=== PATIENT | male | born 1975 | race Caucasian/White ===

== ENCOUNTER → 2017-01-06 | Outpatient (CLI) | payer OTHER ==
[~2017-01-06] MED LIST: ALBU90OI INH; AZIT250 PO; Augmentin 500-1 EACH PO; BENZ100A PO; CIPR750 PO; DIAZ5 PO; DOCU100 PO; HYDACE5 PO; HYDR1TAB94 PO; Hydrocodone-Ap1 EA23 PO; IBUP400 PO; IBUP800 PO; META800 PO; METR500 PO; NEOM500 PO; Norco 5-325 Ta1 EACH PO; OMEP20ER PO; PROC5 PO; Percocet 5-3251 EACH PO; TRAM50 PO; TYLENOL325 MG PO; Zithromax250 MG PO; Zofran Odt4 MG SL
[2017-01-06 15:42] LABS: BASOPHILS ABSOLUTE AUTO 0.01 K/mm3 (0.00-0.23); BASOPHILS PERCENT AUTO 0 % (0-2); EOSINOPHILS ABSOLUTE AUTO 0.05 K/mm3 (0.00-0.68); EOSINOPHILS PERCENT AUTO 1 % (0-6); Hematocrit 42.7 % (37.0-53.0); Hemoglobin 15.2 g/dL (13.5-17.5); IMMATURE GRAN ABSOLUTE AUTO 0.02 K/mm3 (0.00-0.10); IMMATURE GRAN PERCENT AUTO 0 % (0-1); LYMPHOCYTES ABSOLUTE AUTO 1.55 K/mm3 (0.84-5.20); LYMPHOCYTES PERCENT AUTO 21 % (21-46); MONOCYTES ABSOLUTE AUTO 0.66 K/mm3 (0.16-1.47); MONOCYTES PERCENT AUTO 9 % (4-13); Mean Corpuscular HGB 28.4 pg (26.0-34.0); Mean Corpuscular HGB Conc 35.6 g/dL (31.5-36.5); Mean Corpuscular Volume 80 fL (80-100); Mean Platelet Volume 9.9 fL (9.1-12.4); NEUTROPHILS ABSOLUTE AUTO 4.98 K/mm3 (1.96-9.15); NEUTROPHILS PERCENT AUTO 69 % (41-73); Platelet Count 153 K/mm3 (150-400); RDW Coefficient Variation 11.8 % (11.7-14.2); RDW Standard Deviation 33.7 fL (35.1-46.3); Red Blood Cell Count 5.36 M/mm3 (4.30-5.90); White Blood Cell Count 7.27 K/mm3 (4.00-11.30)
[2017-01-06 15:50] LABS: Alanine Aminotransfer (ALT/SGP 45 U/L (12-78); Alk Phos 94 U/L (40-126); Anion Gap 10 mmol/L (6-16); Aspartate Aminotrans (AST/SGOT 20 U/L (12-37); Bilirubin, Total 0.8 mg/dL (0.1-1.0); Blood Urea Nitrogen 11 mg/dL (8-24); Bun/Creatinine Ratio 12.4 (12.0-20.0); CO2, Blood 26 mmol/L (21-32); Chloride, Blood 101 mmol/L (98-108); Creatinine, Blood 0.89 mg/dL (0.60-1.20); Globulin, Blood 4.1 g/dL (2.2-4.0); Glomerular Filtration Rate >60 (60-); Glucose, Blood 103 mg/dL (70-99); Sodium, Blood 137 mmol/L (136-145); Total Protein, Blood 8.1 g/dL (6.4-8.2)
== END | disposition home or self-care (01) ==
LOC: LAB EV 15:35
PROVIDERS: Physician Assistant Surgical
DX: K29.70 Gastritis, unspecified, without bleeding (principal)
CPT/HCPCS: 80053; 83690; 85025

== ENCOUNTER 2017-06-29 21:07 | Inpatient (IN) | payer OTHER ==
[~2017-06-29] VITALS: Ht 177.8 cm; Wt 104.7 kg
[~2017-06-29 21:07] MED LIST changes: -Augmentin 500-1 EACH PO; -CIPR750 PO; -DOCU100 PO; -HYDR1TAB94 PO; -Hydrocodone-Ap1 EA23 PO; -IBUP400 PO; -METR500 PO; -NEOM500 PO; -Norco 5-325 Ta1 EACH PO; -PROC5 PO; -Percocet 5-3251 EACH PO; -TRAM50 PO; -TYLENOL325 MG PO; -Zofran Odt4 MG SL
[2017-06-29 21:35] LABS: BASOPHILS ABSOLUTE AUTO 0.01 K/mm3 (0.00-0.23); BASOPHILS PERCENT AUTO 0 % (0-2); EOSINOPHILS ABSOLUTE AUTO 0.07 K/mm3 (0.00-0.68); EOSINOPHILS PERCENT AUTO 1 % (0-6); Hematocrit 39.5 % (37.0-53.0); Hemoglobin 13.4 g/dL (13.5-17.5); IMMATURE GRAN ABSOLUTE AUTO 0.03 K/mm3 (0.00-0.10); IMMATURE GRAN PERCENT AUTO 0 % (0-1); LYMPHOCYTES ABSOLUTE AUTO 1.11 K/mm3 (0.84-5.20); LYMPHOCYTES PERCENT AUTO 15 % (21-46); MONOCYTES PERCENT AUTO 9 % (4-13); Mean Corpuscular HGB 27.4 pg (26.0-34.0); Mean Corpuscular HGB Conc 33.9 g/dL (31.5-36.5); Mean Corpuscular Volume 81 fL (80-100); Mean Platelet Volume 9.6 fL (9.1-12.4); NEUTROPHILS ABSOLUTE AUTO 5.66 K/mm3 (1.96-9.15); NEUTROPHILS PERCENT AUTO 75 % (41-73); Platelet Count 151 K/mm3 (150-400); RDW Coefficient Variation 11.7 % (11.7-14.2); RDW Standard Deviation 34.2 fL (35.1-46.3); Red Blood Cell Count 4.89 M/mm3 (4.30-5.90); White Blood Cell Count 7.58 K/mm3 (4.00-11.30)
[2017-06-29 21:53] LABS: Source, Urine Clean Catch
[2017-06-29 21:54] LABS: Alanine Aminotransfer (ALT/SGP 36 U/L (12-78); Albumin, Blood 3.5 g/dL (3.4-5.0); Albumin/Globulin Ratio 0.8 (0.8-1.8); Alk Phos 84 U/L (50-136); Anion Gap 7 mmol/L (6-16); Aspartate Aminotrans (AST/SGOT 21 U/L (12-37); Bilirubin, Total 0.6 mg/dL (0.1-1.0); Blood Urea Nitrogen 9 mg/dL (8-24); CO2, Blood 26 mmol/L (21-32); Calcium, Blood 8.4 mg/dL (8.5-10.1); Chloride, Blood 107 mmol/L (98-108); Globulin, Blood 4.2 g/dL (2.2-4.0); Glomerular Filtration Rate >60 (60-); Glucose, Blood 95 mg/dL (70-99); Potassium, Blood 3.9 mmol/L (3.5-5.5); Sodium, Blood 140 mmol/L (136-145); Total Protein, Blood 7.7 g/dL (6.4-8.2)
[2017-06-29 21:55] LABS: Appearance, Urine Clear (Clear); Bilirubin, Urine Neg (Neg); Blood, Urine 2+ (Neg); Color, Urine Yellow (P-Yellow); Glucose Qualitative, Urine Neg (Neg); Ketones, Urine Neg (Neg); Leukocyte Esterase, Urine Neg (Neg); Nitrite, Urine Neg (Neg); Protein, Urine Neg (Neg); Specific Gravity, Urine 1.015 (1.003-1.022); Urobilinogen, Urine 2+ (Normal); pH, Urine 6.5 (5.0-8.0)
[2017-06-29 22:07] LABS: Bacteria Not Seen /hpf; Red Blood Cells, Urine 0-2 /hpf (0-2); Squamous Epithelial Cells Not Seen /hpf (Few); White Blood Cells, Urine Rare /hpf (0-5)
[2017-07-01 08:38] LABS: BASOPHILS ABSOLUTE AUTO 0.01 K/mm3 (0.00-0.23); BASOPHILS PERCENT AUTO 0 % (0-2); EOSINOPHILS ABSOLUTE AUTO 0.09 K/mm3 (0.00-0.68); EOSINOPHILS PERCENT AUTO 2 % (0-6); Hematocrit 38.1 % (37.0-53.0); Hemoglobin 12.7 g/dL (13.5-17.5); IMMATURE GRAN ABSOLUTE AUTO 0.03 K/mm3 (0.00-0.10); IMMATURE GRAN PERCENT AUTO 1 % (0-1); LYMPHOCYTES PERCENT AUTO 19 % (21-46); MONOCYTES ABSOLUTE AUTO 0.64 K/mm3 (0.16-1.47); MONOCYTES PERCENT AUTO 14 % (4-13); Mean Corpuscular HGB 27.3 pg (26.0-34.0); Mean Corpuscular HGB Conc 33.3 g/dL (31.5-36.5); Mean Corpuscular Volume 82 fL (80-100); Mean Platelet Volume 9.6 fL (9.1-12.4); NEUTROPHILS ABSOLUTE AUTO 3.07 K/mm3 (1.96-9.15); NEUTROPHILS PERCENT AUTO 65 % (41-73); Platelet Count 123 K/mm3 (150-400); RDW Coefficient Variation 11.7 % (11.7-14.2); RDW Standard Deviation 34.7 fL (35.1-46.3); Red Blood Cell Count 4.65 M/mm3 (4.30-5.90); White Blood Cell Count 4.74 K/mm3 (4.00-11.30)
[2017-07-01 08:59] LABS: Anion Gap 5 mmol/L (6-16); Blood Urea Nitrogen 7 mg/dL (8-24); Bun/Creatinine Ratio 9.4 (12.0-20.0); CO2, Blood 26 mmol/L (21-32); Calcium, Blood 8.6 mg/dL (8.5-10.1); Chloride, Blood 108 mmol/L (98-108); Creatinine, Blood 0.74 mg/dL (0.60-1.20); Glomerular Filtration Rate >60 (60-); Glucose, Blood 119 mg/dL (70-99); Potassium, Blood 4.1 mmol/L (3.5-5.5); Sodium, Blood 139 mmol/L (136-145)
[2017-07-01] MEDS ORDERED: TYLENOL325 MG PO (15:59)
[2017-07-01] MEDS ORDERED: CIPR750 PO (16:00)
[2017-07-01] MEDS ORDERED: DOCU100 PO (16:00)
[2017-07-01] MEDS ORDERED: HYDR1TAB94 PO (16:01)
[2017-07-01] MEDS ORDERED: METR500 PO (16:01)
[2017-07-01] MEDS ORDERED: PROC5 PO (16:02)
== END 2017-07-01 16:51 | disposition home or self-care (01) | DRG 392 ==
LOC: ER 21:07 → MEDS 06-30 04:06 → UNDODEPER 06-30 05:29 → ENPENDDIS 07-01 16:45 → MEDS 07-01 16:51
PROVIDERS: Emergency Medicine; Internal Medicine
DX: K57.20 Diverticulitis of large intestine with perforation and abscess without bleeding (principal); Z87.891 Personal history of nicotine dependence; Z80.0 Family history of malignant neoplasm of digestive organs
CPT/HCPCS: 36415; 36416; 74018; 74177; 80048; 80053; 81001; 83605; 83690; 85025; 96365; 96367; 99285; J0744; J1650; J3010; J7030; Q9967

== ENCOUNTER 2017-11-06 20:15 | Emergency (ER) | payer OTHER ==
[~2017-11-06] VITALS: Ht 177.8 cm; Wt 98.4 kg
[~2017-11-06 20:15] MED LIST changes: +CIPR750 PO; +DOCU100 PO; +HYDR1TAB94 PO; +METR500 PO; +PROC5 PO; +TYLENOL325 MG PO
[2017-11-06 20:48] LABS: BASOPHILS ABSOLUTE AUTO 0.01 K/mm3 (0.00-0.23); BASOPHILS PERCENT AUTO 0 % (0-2); EOSINOPHILS ABSOLUTE AUTO 0.07 K/mm3 (0.00-0.68); EOSINOPHILS PERCENT AUTO 1 % (0-6); Hematocrit 41.5 % (37.0-53.0); Hemoglobin 13.9 g/dL (13.5-17.5); IMMATURE GRAN ABSOLUTE AUTO 0.03 K/mm3 (0.00-0.10); IMMATURE GRAN PERCENT AUTO 0 % (0-1); LYMPHOCYTES ABSOLUTE AUTO 1.56 K/mm3 (0.84-5.20); LYMPHOCYTES PERCENT AUTO 17 % (21-46); MONOCYTES PERCENT AUTO 8 % (4-13); Mean Corpuscular HGB 27.5 pg (26.0-34.0); Mean Corpuscular HGB Conc 33.5 g/dL (31.5-36.5); Mean Corpuscular Volume 82 fL (80-100); Mean Platelet Volume 9.9 fL (9.1-12.4); NEUTROPHILS ABSOLUTE AUTO 6.57 K/mm3 (1.96-9.15); NEUTROPHILS PERCENT AUTO 74 % (41-73); Platelet Count 129 K/mm3 (150-400); RDW Coefficient Variation 11.9 % (11.7-14.2); RDW Standard Deviation 35.3 fL (35.1-46.3); Red Blood Cell Count 5.06 M/mm3 (4.30-5.90); White Blood Cell Count 8.94 K/mm3 (4.00-11.30)
[2017-11-06 20:54] LABS: Alanine Aminotransfer (ALT/SGP 36 U/L (12-78); Albumin, Blood 3.9 g/dL (3.4-5.0); Alk Phos 81 U/L (50-136); Anion Gap 6 mmol/L (6-16); Aspartate Aminotrans (AST/SGOT 16 U/L (12-37); Bilirubin, Total 0.5 mg/dL (0.1-1.0); Blood Urea Nitrogen 8 mg/dL (8-24); Bun/Creatinine Ratio 9.9 (12.0-20.0); CO2, Blood 28 mmol/L (21-32); Calcium, Blood 8.9 mg/dL (8.5-10.1); Chloride, Blood 103 mmol/L (98-108); Creatinine, Blood 0.81 mg/dL (0.60-1.20); Glomerular Filtration Rate >60 (60-); Glucose, Blood 94 mg/dL (70-99); Potassium, Blood 3.9 mmol/L (3.5-5.5); Sodium, Blood 137 mmol/L (136-145); Total Protein, Blood 7.9 g/dL (6.4-8.2)
[2017-11-07] MEDS ORDERED: Augmentin 500-1 EACH PO (01:26)
[2017-11-07] MEDS ORDERED: Norco 5-325 Ta1 EACH PO (01:26)
[2017-11-07] MEDS ORDERED: Zofran Odt4 MG SL (01:26)
== END 2017-11-07 01:50 | disposition home or self-care (01) ==
LOC: ER 20:15
PROVIDERS: Emergency Medicine
DX: K57.32 Diverticulitis of large intestine without perforation or abscess without bleeding (principal); Z87.891 Personal history of nicotine dependence
CPT/HCPCS: 36415; 74177; 80053; 83690; 85025; 96361; 96374; 96375; 99284-25; J1170; J2405; J7030; Q9967

== ENCOUNTER 2018-02-15 07:01 | Inpatient (IN) | payer OTHER ==
[~2018-02-15] VITALS: Ht 177.8 cm; Wt 97.5 kg
[~2018-02-15 07:01] MED LIST changes: +Augmentin 500-1 EACH PO; +Hydrocodone-Ap1 EA23 PO; +IBUP400 PO; +Norco 5-325 Ta1 EACH PO; +TRAM50 PO; +Zofran Odt4 MG SL
--- NOTE | 2018-02-15 07:59 | NUR ---
History, Chart, Medications and Allergies reviewed before start of procedure. Patient confirms NPO status and agrees with scheduled surgery. Patient reports completing Chlorhexadine shower X2 prior to admission to hospital.
--- NOTE | 2018-02-15 08:05 | NUR ---
REPORTS TAKING ALL OF COLON PREP WITH CLEAR RESULTS.
[2018-02-15] MEDS ORDERED: NEOM500 PO (08:19)
[2018-02-15] MEDS ORDERED: METR500 PO (08:20)
--- NOTE | 2018-02-15 13:40 | NUR ---
PATIENT STATES CONTINUES TO BE PAINFUL AFTER I HAVE EXHAUSTED ALL OF MY ANELGESIC OPTIONS, DR JOHN NOTIFIED. PATIENT CONTINUES TO REFUSE EPIDURAL PAIN CONTROL. O2 2L NC PLACED FOR SUPPORT, PATIENT REMINDED TO DEEP BREATH WITH GOOD RESPONSE. STATES HURTS TO BREATH DEEP. WILL ANTICIPATE ORDERS FROM DR JOHN FOR PAIN CONTROL.
--- NOTE | 2018-02-15 14:01 | NUR ---
TITRATED MEDICATIONS THROUGH RECOVERY FOLLOWS: 1256-FENTANYL 50 MCG IV 1301-FENTANYL 50 MCG IV 1312-FENTANYL 50 MCG IV 1320-FENTANYL 25 MCG IV 1325-FENTANYL 25 MCG IV 1330-FENTANYL 25 MCG IV 1340-FENTANYL 25 MCG IV 1345-FENTANYL 25 MCG IV 1350-FENTANYL 25 MCG IV FOR A TOTAL OF 300 MCG IV GIVEN, WILL SET UP MORPHINE SEAFOOD PROCESSOR PER DR JOHN'S ORDER.
--- NOTE | 2018-02-15 14:18 | NUR ---
MORPHINE RIVETING MACHINE OPERATOR AUTOMATIC VERIFIED WITH LARA Sykes RN AND ADMINISTERED AT 1418.
--- NOTE | 2018-02-15 18:58 | NUR ---
SHIFT SUMMARY PT A&OX4, VSS, S/P SIGMOID LAP COLECTOMY, 3 STERIS SCANT DRAINAGE, PREVENA IN PLACE. MORPHINE ESTATE PLANNING PARALEGAL MANAGING PAIN, PT REP 06/14 TOLERABLE. GRETCHEN CLEAR LIQUIDS, NOT TAKING IN MUCH FLUIDS, IVF @75 MLS/HR. EDOUARD, 5 MLS OUT SINCE ARRIVAL TO FLOOR, BLADDER SCAN 24 MLS, ENC PT TO DRINK WATER. AT BEDSIDE. WILL CTM UNTIL REPORT GIVEN TO ONCOMING NOC RN.
[2018-02-16 05:40] LABS: BASOPHILS ABSOLUTE AUTO 0.01 K/mm3 (0.00-0.23); BASOPHILS PERCENT AUTO 0 % (0-2); EOSINOPHILS PERCENT AUTO 0 % (0-6); Hematocrit 35.6 % (37.0-53.0); IMMATURE GRAN ABSOLUTE AUTO 0.03 K/mm3 (0.00-0.10); IMMATURE GRAN PERCENT AUTO 0 % (0-1); LYMPHOCYTES ABSOLUTE AUTO 0.72 K/mm3 (0.84-5.20); LYMPHOCYTES PERCENT AUTO 10 % (21-46); MONOCYTES ABSOLUTE AUTO 0.87 K/mm3 (0.16-1.47); MONOCYTES PERCENT AUTO 12 % (4-13); Mean Corpuscular HGB 28.1 pg (26.0-34.0); Mean Corpuscular HGB Conc 33.7 g/dL (31.5-36.5); Mean Corpuscular Volume 83 fL (80-100); Mean Platelet Volume 9.5 fL (9.1-12.4); NEUTROPHILS ABSOLUTE AUTO 5.96 K/mm3 (1.96-9.15); NEUTROPHILS PERCENT AUTO 79 % (41-73); Platelet Count 121 K/mm3 (150-400); RDW Standard Deviation 35.9 fL (35.1-46.3); Red Blood Cell Count 4.27 M/mm3 (4.30-5.90); White Blood Cell Count 7.59 K/mm3 (4.00-11.30)
[2018-02-16 06:07] LABS: Anion Gap 10 mmol/L (6-16); Blood Urea Nitrogen 10 mg/dL (8-24); Bun/Creatinine Ratio 14.7 (12.0-20.0); CO2, Blood 24 mmol/L (21-32); Calcium, Blood 7.7 mg/dL (8.5-10.1); Chloride, Blood 104 mmol/L (98-108); Creatinine, Blood 0.68 mg/dL (0.60-1.20); Glomerular Filtration Rate >60 (60-); Glucose, Blood 79 mg/dL (70-99); Sodium, Blood 138 mmol/L (136-145)
--- NOTE | 2018-02-16 07:57 | NUR ---
SHIFT SUMMARY PT A&O X4 T/O SHIFT. POD#1 LAP ASSIT COLECTOMY, LOW ABD TRANSVERSE SITE WITH PREVENA CDI, SEAL INTACT. ABD LAP SITES CDI. ABD SOFT; BTX4; PT REPORTED FLATUS SEVERAL TIMES. PAIN MANGED PER EXERCISE PHYSIOLOGIST AND EMAR. SCD'S TO BLE'S. RA; DENIES SOB. EDUCATION ON USE OF IS AND TCDB GIVEN TO PT. AT BEDSIDE T/O SHIFT. GOOD URINE VOL OUT. TOLERATING SIPS OF CLEAR LIQUID DIET. CALL LIGHT IN REACH; PT DEMONSTRATES USE. REPORT GIVEN TO DAY SHIFT RN.
--- NOTE | 2018-02-16 18:11 | NUR ---
SHIFT SUMMARY PAIN HAS BEEN MANAGED WITH ELECTRO MECHANICAL TECHNICIAN AND TORADOL THIS SHIFT. PT IS ANXIOUS ABOUT HIS SITUATION AND REQUIRES FREQUENT REASSURANCE AND EDUCATION. HIS S/O HAS BEEN AT THE BEDSIDE THIS SHIFT. HE HAS AMBULATED IN THE HALWAY X1. PT IS TOLERATING CLEAR LIQUIDS. VSS. WILL CONTINUE TO MONITOR UNTIL REPORT TO ONCOMING RN.
--- NOTE | 2018-02-17 05:42 | NUR ---
POD 2 S/P LAP COLECTOMY. PT VSS T/O NIGHT. DRESSINGS CDI. PAIN MGD W/SEWING DEMONSTRATOR AND TORIDOL W/REP RELIEF. PT GRETCHEN FUL LIQ PO, NO C/O N/V. PT REP +FLATUS, NO BM. EDOUARD DNRG CLEAR YELLOW URINE, PLAN TO D/C EDOUARD CATH THIS AM. PT AMB IN HALLS X2 THIS SHIFT. AMBULATION AND I/S USE ENCOURAGED. PT USING CALL LIGHT FOR ASSISTANCE, WILL CONT TO MONITOR UNTIL REP GIVEN TO ONCOMING RN.
--- NOTE | 2018-02-17 16:02 | NUR ---
DR. JOHN ROUNDED ON PT. HE REASSURED PT ABOUT HIS CONCERNS. WILL CONTINUE TO MONITOR.
--- NOTE | 2018-02-17 18:10 | NUR ---
SHIFT SUMMARY PAIN HAS BEEN MANAGED WITH DIGITAL COMPUTER SYSTEMS ANALYST THIS SHIFT. HE HAS TRANSITIONED TO PO PAIN MEDICATION THIS AFTERNOON AND APPEARS TO BE TOLERATING WELL. PT HAS BEEN AMBULATING IN THE HALLWAY THIS SHIFT. VSS. WILL MONITOR UNTIL REPORT TO ONCOMING RN.
--- NOTE | 2018-02-18 05:15 | NUR ---
POD 3 S/P LAP COLECTOMY. PT VSS. DRESSINGS CDI. PAIN MGD W/ORAL PAIN MEDS+TORIDOL W/REP RELIEF. PT GRETCHEN FLULL LIQ PO, DENIES N/V, REP +FLATUS, ABD SOFT, LESS DISTENDED. PT HAD 2 UNFORMED BM THIS SHIFT. PT VOIDING URINE W/O DIFFICULTY. PT AMB INDEP IN HALLS, DENIES DIZZINESS WHEN UP. PT USING CALL LIGHT FOR ASSISTANCE, WILL CONT TO MONITOR UNTIL REP GIVEN TO ONCOMING RN.
[2018-02-18] MEDS ORDERED: Percocet 5-3251 EACH PO (13:23)
--- NOTE | 2018-02-18 13:25 | NUR ---
DR JOHN HERE TO SEE PT.
--- NOTE | 2018-02-18 17:15 | NUR ---
DISCHARGE: PT EATING AND DRINKING WELL. PT VOIDING, PASSING GAS. PAIN CONTROLLED ON PO PAIN MEDICATION. PT/FAMILY REPORTS UNDERSTANDING OF DISCHARGE INSTRUCTIONS. PT SENT WITH BELONGINGS AND PAPERWORK INCLUDING SCRIPT. PT IV'S OUT WNL.
== END 2018-02-18 17:19 | disposition home or self-care (01) | DRG 331 ==
LOC: SURS 07:01 → PRE IP 08:30 → SURS 14:51
PROVIDERS: ADMIT Surgery
PROC: 0DBN4ZZ Excision of Sigmoid Colon, Percutaneous Endoscopic Approach (ICD-10-PCS; principal; 2018-02-15 08:30)
DX: K57.20 Diverticulitis of large intestine with perforation and abscess without bleeding (principal); Z87.891 Personal history of nicotine dependence
CPT/HCPCS: 36415; 80048; 85025; 88307; J0295; J1100; J1650; J1885; J2250; J2270; J2370; J2405; J2710; J3010; J7030; J7120; Q0163

== ENCOUNTER → 2018-07-11 | Outpatient (CLI) | payer OTHER ==
[~2018-07-11] MED LIST changes: +NEOM500 PO; +Percocet 5-3251 EACH PO
[2018-07-11 14:16] LABS: BASOPHILS PERCENT AUTO 0 % (0-2); EOSINOPHILS ABSOLUTE AUTO 0.04 K/mm3 (0.00-0.68); EOSINOPHILS PERCENT AUTO 1 % (0-6); Hematocrit 40.2 % (37.0-53.0); Hemoglobin 14.2 g/dL (13.5-17.5); IMMATURE GRAN ABSOLUTE AUTO 0.02 K/mm3 (0.00-0.10); IMMATURE GRAN PERCENT AUTO 0 % (0-1); LYMPHOCYTES ABSOLUTE AUTO 1.38 K/mm3 (0.84-5.20); LYMPHOCYTES PERCENT AUTO 30 % (21-46); MONOCYTES ABSOLUTE AUTO 0.38 K/mm3 (0.16-1.47); MONOCYTES PERCENT AUTO 8 % (4-13); Mean Corpuscular HGB 28.2 pg (26.0-34.0); Mean Corpuscular HGB Conc 35.3 g/dL (31.5-36.5); Mean Corpuscular Volume 80 fL (80-100); Mean Platelet Volume 10.1 fL (9.1-12.4); NEUTROPHILS ABSOLUTE AUTO 2.78 K/mm3 (1.96-9.15); NEUTROPHILS PERCENT AUTO 60 % (41-73); Platelet Count 146 K/mm3 (150-400); RDW Coefficient Variation 12.2 % (11.7-14.2); Red Blood Cell Count 5.03 M/mm3 (4.30-5.90)
[2018-07-11 14:24] LABS: Alanine Aminotransfer (ALT/SGP 34 U/L (12-78); Albumin, Blood 3.9 g/dL (3.4-5.0); Alk Phos 82 U/L (40-126); Anion Gap 8 mmol/L (6-16); Aspartate Aminotrans (AST/SGOT 24 U/L (12-37); Bilirubin, Total 0.4 mg/dL (0.1-1.0); Blood Urea Nitrogen 9 mg/dL (8-24); Bun/Creatinine Ratio 11.4 (12.0-20.0); CO2, Blood 27 mmol/L (21-32); Calcium, Blood 8.7 mg/dL (8.5-10.1); Chloride, Blood 103 mmol/L (98-108); Creatinine, Blood 0.79 mg/dL (0.60-1.20); Globulin, Blood 3.8 g/dL (2.2-4.0); Glomerular Filtration Rate >60 (60-); Glucose, Blood 82 mg/dL (70-99); Potassium, Blood 3.9 mmol/L (3.5-5.5); Sodium, Blood 138 mmol/L (136-145); Total Protein, Blood 7.7 g/dL (6.4-8.2)
== END | disposition home or self-care (01) ==
LOC: LAB EV 14:08 → LAB SHORT 14:08
PROVIDERS: Physician Assistant
DX: R10.30 Lower abdominal pain, unspecified (principal)
CPT/HCPCS: 80053; 85025

== ENCOUNTER → 2019-01-01 | Outpatient (CLI) | payer OTHER | END | disposition home or self-care (01) | LOC: LAB EV 08:19 → LAB SHORT 08:19 | DX: M79.645 Pain in left finger(s) (principal) | CPT/HCPCS: 84550 ==

== ENCOUNTER → 2019-11-12 | Outpatient (CLI) | payer OTHER ==
[2019-11-12 16:32] LABS: BASOPHILS PERCENT AUTO 0 % (0-2); EOSINOPHILS PERCENT AUTO 0 % (0-6); Hematocrit 42.6 % (37.0-53.0); Hemoglobin 14.7 g/dL (13.5-17.5); IMMATURE GRAN ABSOLUTE AUTO 0.01 K/mm3 (0.00-0.10); IMMATURE GRAN PERCENT AUTO 0 % (0-1); LYMPHOCYTES ABSOLUTE AUTO 1.18 K/mm3 (0.84-5.20); LYMPHOCYTES PERCENT AUTO 26 % (21-46); MONOCYTES ABSOLUTE AUTO 0.34 K/mm3 (0.16-1.47); MONOCYTES PERCENT AUTO 8 % (4-13); Mean Corpuscular HGB 27.8 pg (26.0-34.0); Mean Corpuscular HGB Conc 34.5 g/dL (31.5-36.5); Mean Corpuscular Volume 81 fL (80-100); Mean Platelet Volume 10.1 fL (9.1-12.4); NEUTROPHILS PERCENT AUTO 66 % (41-73); Platelet Count 144 K/mm3 (150-400); RDW Coefficient Variation 11.9 % (11.7-14.2); RDW Standard Deviation 34.7 fL (35.1-46.3); Red Blood Cell Count 5.29 M/mm3 (4.30-5.90); White Blood Cell Count 4.53 K/mm3 (4.00-11.30)
[2019-11-12 16:44] LABS: Anion Gap 9 mmol/L (6-16); Blood Urea Nitrogen 10 mg/dL (8-24); Bun/Creatinine Ratio 13.3 (12.0-20.0); CO2, Blood 26 mmol/L (21-32); Calcium, Blood 8.9 mg/dL (8.5-10.1); Chloride, Blood 103 mmol/L (98-108); Creatinine, Blood 0.75 mg/dL (0.60-1.20); Glomerular Filtration Rate >60 (60-); Glucose, Blood 111 mg/dL (70-99); Potassium, Blood 4.1 mmol/L (3.5-5.5); Sodium, Blood 138 mmol/L (136-145)
[2019-11-12 16:46] LABS: Troponin I <0.017 ng/mL (0.000-0.040)
== END | disposition home or self-care (01) ==
LOC: LAB SHORT 16:24 → LAB EV 16:24
PROVIDERS: Physician Assistant Surgical
DX: R07.9 Chest pain, unspecified (principal)
CPT/HCPCS: 80048; 84484; 85025

== ENCOUNTER 2021-12-22 07:50 | Day surgery (SDC) | payer OTHER ==
[~2021-12-22] VITALS: Ht 177.8 cm; Wt 99.5 kg
[~2021-12-22 07:50] MED LIST changes: +IPRAT-ALBUT 0.5-3 ML; +Ventolin5 MG/1 ML INH
--- NOTE | 2021-12-22 10:23 | NUR ---
12/22/21 1023 CHRIS CIFUENTES PT GOT DRESSED WITH RN IN ROOM-STEADY ON FEEL AMBULATING WITH SBA AND DC W/ SBA TO CAR IN
== END 2021-12-22 10:23 | disposition home or self-care (01) ==
LOC: ORSCSDS 07:50
PROVIDERS: Surgery
PROC: 0DBN8ZX Excision of Sigmoid Colon, Via Natural or Artificial Opening Endoscopic, Diagnostic (ICD-10-PCS; principal; 2021-12-22 09:00)
PROC: 0DBC8ZX Excision of Ileocecal Valve, Via Natural or Artificial Opening Endoscopic, Diagnostic (ICD-10-PCS; principal; 2021-12-22 09:00)
DX: K60.3 Anal fistula (principal); K63.5 Polyp of colon; K57.30 Diverticulosis of large intestine without perforation or abscess without bleeding; Z87.891 Personal history of nicotine dependence; E78.5 Hyperlipidemia, unspecified; Z86.16 Personal history of COVID-19
CPT/HCPCS: 88305; J2704; J7120

== ENCOUNTER 2022-01-26 07:58 | Day surgery (SDC) | payer OTHER ==
[~2022-01-26] VITALS: Ht 177.8 cm; Wt 98.1 kg
[~2022-01-26 07:58] MED LIST changes: +MULVITA PO
--- NOTE | 2022-01-26 08:23 | NUR ---
Ambulatory in [facility] warming gown applied. History, Chart, Medications and Allergies reviewed before start of procedure.Lungs clear T/O to Auscultation. Patient confirms NPO status and agrees with scheduled surgery. Ethics consult requested and facilitated. I reviewed the chart, relevant statutory regulations and ethical principles and provided advisory support and guidance to the staff, patient and or family unit. Patient States Post-Procedure ride home has been arranged.
== END 2022-01-26 10:55 | disposition home or self-care (01) ==
LOC: ORSCMMR 07:58 → ORD 11:00
PROVIDERS: Surgery
PROC: 0DQQ7ZZ Repair Anus, Via Natural or Artificial Opening (ICD-10-PCS; principal; 2022-01-26 09:30)
DX: K60.3 Anal fistula (principal); E66.9 Obesity, unspecified; Z68.31 Body mass index [BMI] 31.0-31.9, adult
CPT/HCPCS: 88304; A9270; J1100; J1885; J2250; J2405; J2704; J2795; J3010; J7120

== ENCOUNTER → 2022-09-16 | Outpatient (CLI) | payer OTHER ==
[2022-09-16 16:09] LABS: BASOPHILS PERCENT AUTO 0 % (0-2); EOSINOPHILS ABSOLUTE AUTO 0.06 K/mm3 (0.00-0.68); EOSINOPHILS PERCENT AUTO 1 % (0-6); Hemoglobin 14.5 g/dL (13.5-17.5); IMMATURE GRAN ABSOLUTE AUTO 0.02 K/mm3 (0.00-0.10); IMMATURE GRAN PERCENT AUTO 0 % (0-1); LYMPHOCYTES ABSOLUTE AUTO 1.69 K/mm3 (0.84-5.20); LYMPHOCYTES PERCENT AUTO 33 % (21-46); MONOCYTES ABSOLUTE AUTO 0.51 K/mm3 (0.16-1.47); MONOCYTES PERCENT AUTO 10 % (4-13); Mean Corpuscular HGB 28.8 pg (26.0-34.0); Mean Corpuscular HGB Conc 35.4 g/dL (31.5-36.5); Mean Corpuscular Volume 81 fL (80-100); NEUTROPHILS ABSOLUTE AUTO 2.83 K/mm3 (1.96-9.15); NEUTROPHILS PERCENT AUTO 55 % (41-73); RDW Coefficient Variation 12.2 % (11.7-14.2); RDW Standard Deviation 36.1 fL (35.1-46.3); Red Blood Cell Count 5.04 M/mm3 (4.30-5.90); White Blood Cell Count 5.11 K/mm3 (4.00-11.30)
[2022-09-16 16:21] LABS: Mean Platelet Volume 9.8 fL (9.1-12.4); Platelet Count 138 K/mm3 (150-400)
[2022-09-16 16:22] LABS: Albumin, Blood 3.9 g/dL (3.4-5.0); Albumin/Globulin Ratio 1.1 (0.8-1.8); Bilirubin, Total 0.4 mg/dL (0.1-1.0); Bun/Creatinine Ratio 8.2 (12.0-20.0); Calcium, Blood 8.9 mg/dL (8.5-10.1); Creatinine, Blood 0.85 mg/dL (0.60-1.20); Globulin, Blood 3.6 g/dL (2.2-4.0); Total Protein, Blood 7.5 g/dL (6.4-8.2)
== END | disposition home or self-care (01) ==
LOC: LAB 16:06 → LAB SHORT 16:06
PROVIDERS: Physician Assistant
DX: R06.00 Dyspnea, unspecified (principal)
CPT/HCPCS: 80053; 85025

== ENCOUNTER 2023-02-16 13:55 | Emergency (ER) | payer OTHER ==
[~2023-02-16] VITALS: Ht 177.8 cm; Wt 101.2 kg
[2023-02-16 14:19] VITALS: BP 142/97
[2023-02-16] MEDS ORDERED: Flexeril10 MG PO (14:26)
[2023-02-16] MEDS ORDERED: IBUP800 PO (14:28)
== END 2023-02-16 14:30 | disposition home or self-care (01) ==
LOC: ER 13:55
DX: M54.50 Low back pain, unspecified (principal); R51.9 Headache, unspecified; Z88.5 Allergy status to narcotic agent; V43.52XA Car driver injured in collision with other type car in traffic accident, initial encounter; Y92.410 Unspecified street and highway as the place of occurrence of the external cause
CPT/HCPCS: 99283